=== PATIENT | male | born 1970 | race African-American/Black ===

== ENCOUNTER 2019-09-09 13:36 | Observation (INO) ==
--- NOTE | 2019-09-09 15:11 | Diag Imaging Result Doc PS360 ---
CHEST-1 VIEW - 09/09/2019 INDICATION: wheezing COMPARISON: 06/20/2019 FINDINGS: The lungs are normally expanded and clear. Heart size and mediastinal contours are normal. No pneumothorax or pleural effusion. IMPRESSION: Negative exam. Electronically signed by Marco Antonio Obrien 09/09/2019 3:09 PM
[2019-09-09] MEDS ORDERED: XOPENEX NEB INH ONE (16:57)
[2019-09-09] MEDS ORDERED: NS NEB INH SCH ×2 (17:00→23:00)
[2019-09-09] MEDS ORDERED: NORCO-7.5 PO ONE (17:32)
[2019-09-09 17:40] LABS: INR 1.01; PROTIME 13.4 Seconds (11.0-16.0)
[2019-09-09 17:41] LABS: BASO# 0.02 X1000 (0.0-0.2); BASO% 0.2 % (0.0-0.8); EOS# 0.01 X1000 (0.0-0.7); EOS% 0.1 % (0.0-10.0); HEMATOCRIT 38.6 % (42.0-52.0); HEMOGLOBIN 12.2 g/dL (14.0-18.0); LYMPH% 2.4 % (20.5-51.1); MCH 25.8 PG (27-31); MCHC 31.6 g/dL (33-37); MCV 81.6 FL (81-99); MONO# 0.27 X1000 (0.11-0.59); MONO% 3.3 % (1.7-9.3); NEUT# 7.76 X1000 (1.4-6.5); PLT 314 X1000 (130-400); PTT 33.1 Seconds (22.3-41.8); RBC 4.73 XMIL (4.7-6.1); RDW 12.8 % (11.5-14.5); WBC 8.26 X1000 (4.8-10.8)
[2019-09-09] MEDS ORDERED: TAMIFLU PO ONE (17:54)
[2019-09-09] MEDS ORDERED: NS 1,000 ML IV ONE ×2 (17:56→20:42)
[2019-09-09 18:17] LABS: AGAP 15; ALB/GLOB RATIO 1.5; ALBUMIN 4.5 g/dL (3.5-5.0); ALKALINE PHOSPHATASE 57 U/L (32-122); BUN 12 mg/dL (8-22); CALCIUM 9.9 mg/dL (8.8-10.2); CHLORIDE 103 mmol/L (98-107); COSMO 282; CREATININE 1.1 mg/dL (0.7-1.2); ESTIMATED GFR > 60; GLUCOSE 115 mg/dL (70-104); GOT 22 U/L (10-34); GPT 17 U/L (10-44); MAGNESIUM 2.1 mg/dL (1.5-2.7); POTASSIUM 4.1 mmol/L (3.5-5.1); SODIUM 141 mmol/L (136-145); TCO2 23 mmol/L (25-35); TOTAL BILIRUBIN 0.47 mg/dL (0.20-1.00); TOTAL PROTEIN 7.6 g/dL (6.3-8.3)
--- NOTE | 2019-09-09 18:22 | PROVIDER DOCUMENTATION ---
This chart was entered by Autumn Field Scribe, acting as scribe for Mark Sung MD. HPI-Respiratory General - General Chief Complaint: Shortness of Breath Stated Complaint: SOB Time Seen by Provider: 09/09/19 14:03 Source: patient, EMS Allergies/Adverse Reactions: Patient Allergies Allergy/AdvReac Type Severity Reaction Status Date / Time No Known Allergies Allergy Verified 06/20/19 08:31 Home Medications: Home Medication List Medication Instructions Recorded Confirmed Last Taken Type Albuterol Sulfate [Proair Hfa] 8.5 gm IH PRN PRN 11/26/17 06/20/19 06/20/19 History 8.5 GM Amlodipine [Norvasc] 10 mg PO QAM 11/26/17 06/20/19 06/19/19 History 10 MG Lisinopril 40 mg PO QAM 11/26/17 06/20/19 06/19/19 History 40 MG Clonidine [Catapres] 0.1 mg PO TID PRN #20 tab 03/04/18 06/20/19 06/19/19 Rx 0.1 MG Albuterol [Albuterol Neb] 2.5 mg INH Q4H PRN PRN 06/20/19 06/20/19 06/20/19 History 2.5 MG Methylprednisolone [Medrol Dosepak] 4 mg PO DIRECTED #1 pkg 06/20/19 Unknown Rx - History of Present Illness-Resp Nature of Presenting Problem: Pt is a 49 yobm brought from [facility] by EMS when it was discovered his O2 low as well as him having an asthma attack. Pt states that his abdomen hurts from coughing and SOB which started 2 days ago. The clinic gave him a steroid shot in the arm. Pt uses an Albuterol inhaler but does not have a nebulizer at home. Pt is alert and nontoxic in appearance. Quality of Pain: reports: dull Severity in ED: reports: mild Onset/Duration: reports: gradual, 2 days ago Timing: reports: still present, getting worse Exposure: reports: unknown cause Cough Quality/Degree: reports: mild, dry cough Episode Frequency: occasional episodes Current Respiratory Medication Therapy: Initiated albuterol/atrovent inhale Modifying Factors: improves with: albuterol inhaler. worse with: exertion, coughing, deep breath Associated Symptoms: reports: cough, fever/chills, shortness of breath, wheezing Similar Symptoms Previously?: No Recently seen or treated by another doctor?: Yes ([facility] this am) Review of Systems - Adult - REVIEW OF SYSTEMS - ADULT Constitutional: reports: see HPI, fever Eyes: reports: no symptoms reported Ears, Nose, Mouth & Throat: reports: no symptoms reported Cardiovascular: reports: see HPI. denies: syncope Respiratory: reports: cough, shortness of breath Gastrointestinal: reports: see HPI, abdominal pain (abdominal soresness from coughing) Genitourinary: reports: no symptoms reported Musculoskeletal: reports: no symptoms reported Integumentary: reports: no symptoms reported Neurological: denies: dizziness/vertigo, syncope Psychiatric: reports: no symptoms reported Endocrine: reports: no symptoms reported Hematologic/Lymphatic: reports: no symptoms reported Allergic/Immunologic: reports: no symptoms reported All Other Systems: Reviewed and Negative Past History - Adult - PAST MEDICAL HISTORY-ADULT Review of Records: reports: Old Records Reviewed, Nursing Assessment Review, Medications Reviewed, Social history reviewed & non-contributory. Major Childhood Illnesses: reports: denies history Cardiovascular: reports: HTN Respiratory: reports: asthma Gastrointestinal: reports: denies history Obstetrical/Gynecological: reports: denies history Genitourinary: reports: denies history Musculoskeletal: reports: arthritis Neurological: reports: denies history Endocrine/Immune: reports: denies history Other Conditions: reports: denies history - PRIOR SURGERIES/PROCEDURES Surgical/Procedure History: reports: joint replacement (total hip) - IMMUNIZATION STATUS Childhood Immunizations: See Nurse Assessment Flu Vaccine: See Nurse Assessment - FAMILY HISTORY Family History: reviewed, not pertinent - SOCIAL HISTORY Smoking: non-smoker Substance Use: alcohol Alcohol Use Frequency: occasionally Number of drinks per typical drinking period:: 2 drinks Living Situation: family Physical Exam-General - PHYSICAL EXAM-ADULT Initial Vital Signs Reviewed: Yes (Temp 100.6, HR 125) - CONSTITUTIONAL General Appearance: appears well, alert, no apparent distress - EYES Eyes: PERRL/EOMI - HEAD, EARS, NOSE, MOUTH & THROAT HENMT: normocephalic/atraumatic, moist mucous membranes, normal ENT inspection - NECK Neck: non-tender, full range of motion, supple, normal inspection - RESPIRATORY Respiratory: chest non-tender, wheezing (bilateral) - CARDIOVASCULAR Cardiovascular: normal peripheral pulses, no edema, tachycardia - GASTROINTESTINAL (ABDOMEN) Abdominal Exam: normal bowel sounds, non tender, soft, no organomegaly - MUSCULOSKELETAL Back Exam: normal inspection, no CVA tenderness, no vertebral tenderness Extremity: normal range of motion, non-tender, normal gait, normal inspection, no pedal edema - SKIN Integumentary: normal color, normal turgor, warm/dry - NEUROLOGIC Neurologic: grossly normal - PSYCHIATRIC Psych/Mental Status: normal mood/affect, normal thought content, normal thought process, oriented x 3 Progress - PLAN OF CARE/RESULTS Progress/Plan/Lab Results: Vital Signs - 8 hr 09/09/19 14:12 09/09/19 15:21 09/09/19 17:13 Temperature 100.6 F H Pulse Rate 125 H 132 H 125 H Respiratory Rate 20 20 24 Blood Pressure 157/100 160/103 O2 Sat by Pulse Oximetry 97 96 96 09/09/19 16:43 Influenza Screen - Final Nasopharyngeal Laboratory Results - last 24 hr 09/09/19 09/09/19 09/09/19 17:09 17:09 17:09 WBC 8.26 RBC 4.73 Hgb 12.2 L Hct 38.6 L MCV 81.6 MCH 25.8 L MCHC 31.6 L RDW Std Deviation 12.8 Plt Count 314 MPV 10.0 Immature Gran % (Auto) 0.0 Neut % (Auto) 94.0 H Lymph % (Auto) 2.4 L [place] % (Auto) 3.3 Eos % (Auto) 0.1 Baso % (Auto) 0.2 Immature Gran # (Auto) 0.00 Neut # (Auto) 7.76 H Lymph # (Auto) 0.20 L [place] # (Auto) 0.27 Eos # (Auto) 0.01 Baso # (Auto) 0.02 PT 13.4 INR 1.01 PTT (Actin FS) 33.1 Sodium 141 Potassium 4.1 Chloride 103 Carbon Dioxide 23 L Anion Gap 15 BUN 12 Creatinine 1.1 Estimated GFR/1.73 m2 > 60 BUN/Creatinine Ratio 11 Glucose 115 H Calculated Osmolality 282 Calcium 9.9 Magnesium 2.1 Total Bilirubin 0.47 AST 22 ALT 17 Alkaline Phosphatase 57 Troponin T High Sens Total Protein 7.6 Albumin 4.5 Globulin 3.1 Albumin/Globulin Ratio 1.5 Plasma Lactate 09/09/19 09/09/19 17:09 17:09 WBC RBC Hgb Hct MCV MCH MCHC RDW Std Deviation Plt Count MPV Immature Gran % (Auto) Neut % (Auto) Lymph % (Auto) [place] % (Auto) Eos % (Auto) Baso % (Auto) Immature Gran # (Auto) Neut # (Auto) Lymph # (Auto) [place] # (Auto) Eos # (Auto) Baso # (Auto) PT INR PTT (Actin FS) Sodium Potassium Chloride Carbon Dioxide Anion Gap BUN Creatinine Estimated GFR/1.73 m2 BUN/Creatinine Ratio Glucose Calculated Osmolality Calcium Magnesium Total Bilirubin AST ALT Alkaline Phosphatase Troponin T High Sens 10 Total Protein Albumin Globulin Albumin/Globulin Ratio Plasma Lactate 1.5 Orders Category Date Time Status Cardiac Monitoring DIRECTED Care 09/09/19 14:15 Active IV Insertion ORDERED Care 09/09/19 14:15 Completed Notify MD of + Sepsis Screen NOW Care 09/09/19 14:15 Active CHEST-1 VIEW [RAD] Stat Exams 09/09/19 14:04 Completed BLOOD CULTURE [BLDCUL] Stat Lab 09/09/19 17:27 Results CBC WITH DIFF [HEME] Stat Lab 09/09/19 17:09 Completed CK PROFILE [SP CHEM] Stat Lab 09/09/19 17:09 Results COMPREHENSIVE METABOLIC PANEL [CHEM] Stat Lab 09/09/19 17:09 Results INFLUENZA SCREEN A/B Stat Lab 09/09/19 16:43 Completed LACTATE, PLASMA [CHEM] Lab 09/09/19 17:09 Completed LACTATE, PLASMA [CHEM] Lab 09/09/19 17:15 Uncollected LACTATE, PLASMA [CHEM] Lab 09/09/19 20:15 Uncollected MAGNESIUM [CHEM] Stat Lab 09/09/19 17:09 Results PROTIME WITH INR [COAG] Stat Lab 09/09/19 17:09 Completed PTT [COAG] Stat Lab 09/09/19 17:09 Completed TROPONIN T HIGH SENSITIVITY Stat Lab 09/09/19 17:09 Completed URINALYSIS W/POSS RFLX CULT [URINALYSIS] Stat Lab 09/09/19 14:15 Uncollected 0.9% Sodium Chloride Inj [Ns] 1,000 ml Med 09/09/19 17:56 Active IV 999 mls/hr Hydrocodone/APAP 7.5 mg/325 mg [[place]-7.5] Med 09/09/19 17:32 Discontinued 1 each PO NOW ONE Levalbuterol Neb [Xopenex Neb] Med 09/09/19 16:57 Discontinued 1.25 mg INH NOW ONE Oseltamivir [Tamiflu] Med 09/09/19 17:54 Discontinued 75 mg PO NOW ONE Sodium Chloride 0.9% Neb [Ns Neb] Med 09/09/19 17:00 Active 5 ml INH DIRECTED Aerosol Treatments Routine Oth 09/09/19 16:57 Completed Aerosol Treatments Stat Oth 09/09/19 16:57 Completed Oxygen Device Stat Ot 09/09/19 14:15 Completed Result Diagrams: 09/09/19 17:09 09/09/19 17:09 - REASSESSMENT Reassessment #3 Time Reassessed: 18:20 Status: unchanged (persistent wheezing despite serial nebs and steroids; flu screen +, tamiflu ordered; discussed w/ Margarette Amato of Hospitalist service; they will admit) - XRAY 1 XRAY Study: Chest Impression: See EMR Report (CHEST-1 VIEW - 09/09/2019 INDICATION: wheezing COMPARISON: 06/20/2019 FINDINGS: The lungs are normally expanded and clear. Heart size and mediastinal contours are normal. No pneumothorax or pleural effusion. IMPRESSION: Negative exam. Electronically signed by Marco Antonio Obrien 09/09/2019 3:09 PM 09/09/19 1509 Interpreting Physician: Marco Antonio Obrien MD Dictated Date/Time: 09/09/19 1509 cc: Mark Sung MD; Nnamdi Mcneil) Departure - Departure Date of Disposition Decision: 09/09/19 Time of Disposition Decision: 17:55 DIAGNOSIS: Status asthmaticus, Influenza Disposition: ADMITTED INPATIENT 09 Certified Medical Emergency: Emergent Condition: Stable Referrals and Follow-Ups: Nnamdi Mcneil [Primary Care Provider] - - Critical Care Note This patient required my direct & personal management of CC.: No Attestation - Physician/ TARIQ Attestation Patient care was provided by Advanced Practice Provider:: No The physician spent face to face time with patient:: Yes Advanced Practice Provider documentation review:: Supervising physician onsite and consulted in the evaluation and care of this patient. The physician did have a face to face encounter with the patient. This chart was documented by the indicated scribe, (Autumn Field, [place]) and accurately reflects the services I performed and decisions made by me, Mark Sung MD, as attested by the provider's signature.
[2019-09-09 18:28] LABS: CK PROFILE 560 U/L (24-204)
[2019-09-09 19:08] LABS: CK INDEX 0.5 (0.0-2.5); CK-MB 2.72 ng/mL (0.0-5.0)
[2019-09-09 20:03] LABS: URINE SOURCE CLEAN CATCH
[2019-09-09 20:06] LABS: BILIRUBIN URINE NEGATIVE (NEGATIVE); BLOOD URINE NEGATIVE (NEGATIVE); COLOR YELLOW; GLUCOSE URINE NEGATIVE (NEGATIVE); KETONE URINE NEGATIVE (NEGATIVE); LEUKOCYTES URINE NEGATIVE (NEGATIVE); NITRITE URINE NEGATIVE (NEGATIVE); PROTEIN URINE TRACE mg/dL (NEGATIVE); SP GRAVITY URINE 1.026; TURBIDITY URINE CLEAR (CLEAR); UR EPITHELIAL CELLS <10 /HPF (<10); URINE BACTERIA NEGATIVE /HPF; URINE RBC <10 /HPF (<10); URINE WBC <10 /HPF (<10); UROBILINOGEN URINE NORMAL (NORMAL)
[2019-09-09] MEDS ORDERED: TYLENOL PO ONE (20:30)
[2019-09-09] MEDS ORDERED: ATROVENT NEB INH ONE (20:42)
[2019-09-09] MEDS ORDERED: SOLU-MEDROL IV ONE (20:42)
[2019-09-09] MEDS ORDERED: CATAPRES PO PRN ×2 (20:43→21:39)
--- NOTE | 2019-09-09 21:35 | HISTORY AND PHYSICAL ---
ADDENDUM: The patient was admitted to our facility complaining of aches, fevers, chills, shortness of breath and occasional cough. Found to be flu positive. The patient was noticeably initially hypoxic and is on 2 L with O2 saturation up in the 94% range. He reports that this is only gone on for this 1 day. He was given a breathing treatment, and this helped him a little bit. Currently, his exam is surprisingly unremarkable. His lab work is unremarkable, but clinically, the patient is acutely ill. He is flu A positive and will be kept hopefully overnight to treat not only flu but his underlying mild to moderate asthma exacerbation. We will start him on long-acting and short-acting bronchodilators, Solu-Medrol 40 mg q.12 and transition the next day to prednisone 40 daily. Continue with fluids and oseltamivir i.e. Tamiflu. cc: Alexus Stein MD
[2019-09-09] MEDS ORDERED: TESSALON PO PRN (22:30)
[2019-09-09] MEDS ORDERED: ROBITUSSIN-AC PO PRN (22:31)
[2019-09-09] MEDS ORDERED: ZOFRAN IV PRN (22:51)
[2019-09-10] MEDS ORDERED: TYLENOL PO PRN (03:00)
[2019-09-10] MEDS: XOPENEX NEB INH SCH ×4 (03:27→22:53)
[2019-09-10] MEDS: ATROVENT NEB INH SCH ×4 (03:27→22:53)
[2019-09-10] MEDS: BROVANA NEB INH SCH ×3 (03:37→22:53)
[2019-09-10] MEDS: NORVASC PO SCH (08:20)
[2019-09-10] MEDS: TAMIFLU PO SCH ×2 (08:20→21:55)
[2019-09-10] MEDS: SOLU-MEDROL IV SCH ×2 (08:20→21:55)
[2019-09-10 08:36] LABS: BASO# 0.01 X1000 (0.0-0.2); BASO% 0.1 % (0.0-0.8); HEMATOCRIT 35.8 % (42.0-52.0); HEMOGLOBIN 11.3 g/dL (14.0-18.0); LYMPH# 0.28 X1000 (1.2-3.4); MCH 26.1 PG (27-31); MCHC 31.6 g/dL (33-37); MCV 82.7 FL (81-99); MONO# 0.21 X1000 (0.11-0.59); MPV 9.6 FL (7.4-10.4); NEUT# 6.51 X1000 (1.4-6.5); NEUT% 92.9 % (42.2-75.2); PLT 310 X1000 (130-400); RBC 4.33 XMIL (4.7-6.1); RDW 12.8 % (11.5-14.5); WBC 7.01 X1000 (4.8-10.8)
[2019-09-10 09:09] LABS: AGAP 12; BUN 13 mg/dL (8-22); CALCIUM 9.4 mg/dL (8.8-10.2); CHLORIDE 105 mmol/L (98-107); COSMO 283; CREATININE 1.1 mg/dL (0.7-1.2); ESTIMATED GFR > 60; GLUCOSE 129 mg/dL (70-104); POTASSIUM 4.4 mmol/L (3.5-5.1); SODIUM 141 mmol/L (136-145); TCO2 24 mmol/L (25-35)
[2019-09-10 09:22] LABS: ANISOCYTOSIS 2+; LYMPHS 4 % (21-51); MICROCYTOSIS 2+; MONO 3 % (1-9); SEGS 93 % (42-75)
[2019-09-10 09:23] LABS: LARGE PLATELETS 1+
[2019-09-10] MEDS ORDERED: BROVANA NEB ONE ×2 (10:02→22:36)
--- NOTE | 2019-09-10 11:13 | HISTORY AND PHYSICAL ---
PRIMARY CARE PROVIDER: Dr. Nnamdi Mcneil. CHIEF COMPLAINT: Shortness of breath, hypoxia, and flu-like symptoms. HISTORY OF PRESENT ILLNESS: Mr. Costello is a 49-year-old male with a past medical history most notable for asthma, hypertension, and arthritis. He states that starting yesterday on September 08 that he did begin to have symptoms of fever, body aches and chills, a nonproductive wet cough and shortness of breath. The patient does have history of asthma. He does have an albuterol inhaler that he uses as needed, though does not do nebulizer treatments at home. He denied recently being around anyone who was diagnosed with the flu or was sick with similar symptoms. He denies any recent travel. The patient states that he is in and out of people's houses. He does do, I believe it was [employer] work. He stated that his symptoms started yesterday and he just began to feel worse from there. He did go to his physician's office today. His physician does have an urgent care located in the office from what I understand. It was reported to me by the patient and the patient's that his oxygen saturation at the urgent care was in the high 80s. They did get this to improve with oxygen, though they did try to take him off to see how he did without it after the initial placement and his oxygen saturation did dip right back down into the high 80s and low 90s. Given that he was reporting shortness of breath and was having his other symptoms, they did have him transferred by ambulance to [facility] ER for further treatment and evaluation. He denies any headache, dizziness, or feeling lightheaded. He denies any chest pain. He does report cough as mentioned above and the shortness of breath. Though the patient denies any abdominal pain, he does report that his abdomen is chronically distended. This has been ongoing for approximately 2 years. Also, the patient reports that he does have frequent nausea and vomiting. This usually occurs after eating. This has been ongoing for approximately 2 years as well. He has had a previous EGD, though has just recently become Dr. Nnamdi Mcneil's patient and he did report that they are setting him up with a followup appointment with a timber hand for further evaluation of his continued abdominal distention and nausea and vomiting, though he denies any hematemesis or coffee-grounds emesis. He denies any hematochezia or melena. He does report rare only occasional alcohol use though does take diclofenac daily for his arthritis. He denies any abdominal pain though. He does report that he has regular bowel movements daily and that these are good bowel movements. He does not have problems with constipation either. He denies any dysuria or urinary frequency. He denies any pain, numbness, tingling or swelling in extremities. Upon evaluation in the ER, his laboratory results were pretty unremarkable. He had no leukocytosis noted. His lactate was within normal limits. His urinalysis did not show any signs of infection, though he did test positive for influenza A. In the ER, he was given a nebulizer treatment of Xopenex and Atrovent. He was given initial dose of Tamiflu. He reportedly was given a intramuscular injection of Solu-Medrol at Urgent Care. He also was given 2 L normal saline bolus and Tylenol to treat his fever. In the ER, he was noted to have a temperature at one time that was as high as 102.4. The patient was placed inpatient admission for further treatment evaluation of his asthma exacerbation and influenza. REVIEW OF SYSTEMS: A 14 point review of systems was conducted with the patient and all were negative except for pertinent positives mentioned above HPI. PAST MEDICAL HISTORY: 1. Hypertension. 2. Asthma. 3. Arthritis. PAST SURGICAL HISTORY: Bilateral hip replacements. SOCIAL HISTORY: The patient denies any history of smoking. He denies any illicit drug use. Does report some very rare occasional alcohol use. FAMILY HISTORY: Positive for history of lung disease, which include COPD in his father and sister, though they did both smoke cigarettes. ALLERGIES: Patient has no known allergies. HOME MEDICATIONS: 1. Albuterol, ProAir HFA inhaler 8.5 g, 1 to 2 puffs inhaled q.4-6 hours p.r.n. as needed for wheezing and shortness of breath. 2. Norvasc 10 mg p.o. daily. 3. Clonidine 0.1 mg p.o. t.i.d. p.r.n. for elevated blood pressure. 4. Voltaren 75 mg tablet p.o. b.i.d. 5. Lisinopril 40 mg p.o. daily. DIAGNOSTIC DATA: White blood cell count is 8260, hemoglobin 12.2, hematocrit is 36.8, platelet count is 314,000. PT 13.4, INR 1.01, PTT is 33.1. Sodium 141, potassium 4.1, chloride 103, serum bicarb is 23, BUN 12, creatinine 1.1 with GFR greater than 60, glucose 115, calcium 9.9, magnesium 2.1. Liver function tests within normal limits. CK 560, CK index 0.5, CK-MB is 2.72, troponin T high sensitivity 10. Plasma lactate was 1.1. Urinalysis did not show any signs of infection. It was positive for protein. It was negative for glucose, ketones, blood, nitrites, leukocytes, white blood cells, or bacteria. Chest x-ray showed no acute abnormality. PHYSICAL EXAMINATION: VITAL SIGNS: Temperature 98.8 degrees, heart rate 114, respirations 17, blood pressure is 167/102. Oxygen saturation is 96% on nasal cannula at 2 L. Mr. Costello is a pleasant 49-year-old male who is resting in the ER stretcher. He is in no acute distress. He was awake, alert and able answer questions appropriately. His was present at bedside during my examination. HEENT: Head is atraumatic, normocephalic. Pupils are equal, round, reactive to light, were 3 mm bilaterally and brisk. Oral mucosa is moist. Oropharynx is clear. NECK: Supple. Trachea midline. CARDIOVASCULAR: Patient has S1-S2 present. No murmurs, gallops, rubs appreciated with a regular rate and rhythm. PULMONARY: The patient has symmetrical chest expansion bilaterally. Lung sounds in bilateral full maxwell were diminished. He did have coarse rhonchi and wheezing noted as well. ABDOMEN: Is soft, though it is very slightly firm, does appear to be distended. As previously mentioned, the patient states this is not of new onset. This has been ongoing for approximately 2 years. He was nontender except for some very slight reported tenderness in his left flank area. Bowel sounds were present in all 4 quadrants, were normoactive. EXTREMITIES: No cyanosis or edema noted. Pulse, motor, and sensory were intact in all extremities. Radial and pedal pulses were 2+ bilaterally. INTEGUMENTARY: The patient's skin color is normal for his race, is dry and intact. NEUROLOGICAL: Patient is alert and oriented to person, place, time, and situation. ASSESSMENT AND PLAN: 1. Asthma exacerbation. For treatment of this, we will go ahead and place the patient with IV Solu-Medrol 40 mg IV q.12 hours. We will do 2 more doses of this and transition him to p.o. prednisone. We will implement long-acting bronchodilator of Brovana and short-acting of Xopenex and Atrovent. We will continue with aggressive pulmonary toilet with incentive spirometry and frequent turn, cough and deep breathing. We have implemented Tessalon Perles and Robitussin AC for cough. We will continue with supplemental oxygen as well. We will continue to monitor his respiratory status closely. 2. Influenza. The patient has been started on Tamiflu. We will continue this twice daily. 3. Hypertension. We have continued his amlodipine and he does have as needed clonidine as needed for systolic blood pressure greater than 190. 4. Frequent nausea and vomiting. As previously mentioned, the patient states this has been ongoing for approximately 2 years in addition to his abdominal distention. He reports this is more often after he eats. The patient does take a regular prescription diclofenac. This could be contributing to some gastric irritation. We will hold this medication. We have placed p.r.n. orders for Zofran if needed. The patient did report to me that he does have a family doctor and they are working on getting him set up with a referral to a timber hand. 5. Deep vein thrombosis prophylaxis. He is provided with sequential compression devices. The patient was placed on medical floor telemetry. He will have vital signs q.4 hours. We will do strict intake and output. He will be on a heart healthy diet. We will repeat a CBC and BMP in the morning. Blood cultures were obtained as well. Further orders and recommendations pending hospital course, diagnostic studies, and physician evaluation. Dictated by JARRED Jaramillo for Alexus Stein MD cc: Alexus Stein MD
--- NOTE | 2019-09-10 17:28 | PROGRESS NOTE ---
DATE: 09/10/2019 INTERVAL HISTORY: No acute events overnight. SUBJECTIVE: Mr. Costello is feeling better. He denies any chest pain as such; however he states occasionally after a cough, he does experience rib cage pain. His muscle ache is also better. We discussed about asthma exacerbation and the normal course of flu. He is not a smoker. I answered all of his questions. VITALS: Temperature of 98.4, pulse 104, respiratory rate 19, blood pressure 148/87. I turned his oxygen down, and his oxygen saturation was 94% to 96% on room air. PHYSICAL EXAMINATION: General: Not in acute distress HEENT: Oral cavity is moist. Respiratory: Air entry bilaterally equal. No wheeze or crackles. No pharyngeal congestion. Cardiovascular: S1, S2 normal. No murmur or gallop. Abdomen: Soft, nontender. Extremities: No lower extremity edema. Neurologic: He is alert and oriented x3. LABS: Suggestive of normal WBCs, hemoglobin of 11.3, platelet of 310. He has normal electrolytes. No lactic acidosis. Blood cultures are in lab. No new imaging. ASSESSMENT AND PLAN: 1. Hypoxia due to acute asthma exacerbation and influenza type A. He initially required 2 L of oxygen through nasal cannula. Currently, he is improving. We will wean off oxygen as tolerated. 2. Acute asthma exacerbation. He still has mild wheezes on my examination at the end of expiration. I will keep him on the current dose of intravenous steroids. I will start him on oral steroids starting tomorrow and continue him on inhaled bronchodilators. His influenza could be a trigger for his asthma. 3. Influenza. Continue him on Tamiflu. 4. Presumed sepsis. He likely had tachycardia and fever in the setting of influenza and may not have true bacteremia. However, I will follow up with the blood culture tomorrow. He is not on antibiotics at the moment. DISPOSITION: I will monitor him overnight as I await final blood culture results, and also await improvement in his asthma exacerbation. Based on that, I would anticipate discharge in the next 24 hours. Plan of care discussed with Mr. Costello. His questions have been satisfactorily answered. He is in agreement with the plan. cc: Yeison Barrera MD
[2019-09-11] MEDS: XOPENEX NEB INH SCH ×2 (03:26→11:02)
[2019-09-11] MEDS: ATROVENT NEB INH SCH ×2 (03:26→11:01)
[2019-09-11] MEDS ORDERED: NORCO-5 PO ONE (05:18)
[2019-09-11] MEDS: TAMIFLU PO SCH (08:30)
[2019-09-11] MEDS: NORVASC PO SCH (08:30)
[2019-09-11 08:32] VITALS: BP 172/110
[2019-09-11] MEDS ORDERED: PREDNISONE PO SCH (09:00)
[2019-09-11] MEDS ORDERED: PRINIVIL PO SCH (09:45)
--- NOTE | 2019-09-11 10:33 | DISCHARGE SUMMARY ---
ADMISSION DATE: 09/09/2019 DISCHARGE DATE: 09/11/2019 PRIMARY CARE PHYSICIAN: Dr. Nnamdi Mcneil. HISTORY AND HOSPITAL COURSE: This is a 49-year-old, male with past medical history noted for asthma, hypertension, arthritis. He states that it started on 09/08/2019. He had symptoms of fever, body aches, chills, productive cough, shortness of breath. Did have a history of asthma, and does have an albuterol inhaler which he was using. Does not do nebulized treatments. He has not been around anybody that he knows of that is sick, but states that he works out of people's houses. I believe he does [employer] work. Started his symptoms the day before admission, got worse, went to the physician's office of Nnamdi Mcneil, and it was reported to the patient's that oxygen sats at the Urgent Care were in the 80s, and so he came here to the hospital and was admitted with asthma exacerbation and influenza. He was started on Tamiflu. His nasal swabs were positive for influenza A. Blood cultures were negative from 09/09/2019. He felt much better on 09/11/2019 and wanted to go home, and so I will discharge him home. I will put him on another 3 days of Tamiflu. His breathing was comfortable, no wheezing, and will put him back on his blood pressure medicines. He has Norvasc 10 mg every a.m., Catapres 0.1 mg p.o. t.i.d. p.r.n., diclofenac he takes 1 tablet b.i.d., lisinopril 40 mg a day, he has albuterol nebulizer, I believe. I think he has that at home. cc: Tha Ludwig MD
[2019-09-11] MEDS: BROVANA NEB INH SCH (11:01)
[2019-09-11] MEDS ORDERED: BROVANA NEB ONE (11:01)
== END 2019-09-11 11:31 | disposition home or self-care (01) ==
LOC: SUPCPDRO → ED 13:36 → SUATTDRO 21:49 → INTOOBSV 21:49 → 3N 21:49
PROVIDERS: ATTEND Emergency Medicine